=== PATIENT | male | born 1990 | race Caucasian/White ===

== ENCOUNTER 2017-04-03 19:17 | Inpatient (IN) | payer OTHER, SELFPAY ==
[~2017-04-03] VITALS: Ht 177.8 cm; Wt 75.6 kg
[2017-04-03 20:05] LABS: ASPARTATE AMINO TRANSFERASE 26 U/L (15-37); BLOOD UREA NITROGEN 20 mg/dL (7-18)
[2017-04-03 20:12] LABS: HEMATOCRIT 47.6 % (39.2-51.8); HEMOGLOBIN 16.5 g/dL (13.7-18.0); WHITE BLOOD COUNT 11.2 x10^3/uL (3.4-10)
[2017-04-03] MEDS ORDERED: OMNIPAQUE 350 MG/ML, 100ML BOTTLE ONE (20:41)
[2017-04-03] MEDS ORDERED: SODIUM CHLORIDE FLUSH 10ML SYR IVF ONE (21:00)
[2017-04-03] MEDS ORDERED: SODIUM CHLORIDE 0.9% 1,000ML IVBOLUS ONE (21:00)
[2017-04-03] MEDS ORDERED: PIPERACILLIN/TAZO/PMX 4.5GM 100 ML IV ONE (21:12)
[2017-04-03] MEDS ORDERED: HYDROcodone/APAP 5/325 TABLET PO PRN (21:30)
[2017-04-03] MEDS: FAMOTIDINE 20 MG/2 ML IVPush SCH (21:30)
[2017-04-03] MEDS ORDERED: ONDANSETRON ODT 4 MG PO PRN (21:30)
[2017-04-03] MEDS ORDERED: ACETAMINOPHEN 325 MG TABLET PO PRN (21:30)
[2017-04-03] MEDS ORDERED: LACTATED RINGERS 1,000 ML IV SCH (21:30)
[2017-04-03 23:18] VITALS: BP 147/82
[2017-04-04 02:59] VITALS: BP 130/75
[2017-04-04] MEDS: PIPERACILLIN/TAZO/PMX 3.375GM 50 ML IV SCH ×2 (03:09→09:15)
[2017-04-04] MEDS ORDERED: EPINEPHRINE 1 MG/ML, 1ML ONE (06:45)
[2017-04-04] MEDS ORDERED: BUPIVACAINE/PF 0.5% ONE (06:45)
[2017-04-04] MEDS ORDERED: LIDOCAINE-MPF 2% ,5ML ONE (06:55)
[2017-04-04] MEDS ORDERED: SUCCINYLCHOLINE 20 MG/ML, 10ML ONE (06:55)
[2017-04-04] MEDS ORDERED: ROCURONIUM 10 MG/ML ONE (06:55)
[2017-04-04] MEDS ORDERED: PROPOFOL 10 MG/ML, 20ML ONE (06:55)
[2017-04-04] MEDS ORDERED: BUPIVACAINE/PF-EPI 0.5% 1:200K IM ONE (07:10)
[2017-04-04] MEDS ORDERED: MIDAZOLAM 1 MG/ML, 2ML ONE (07:12)
[2017-04-04] MEDS ORDERED: FENTANYL PF 100 MCG/2ML ONE (07:12)
[2017-04-04] MEDS ORDERED: ONDANSETRON 2MG/ML, 2ML ONE (07:32)
[2017-04-04] MEDS ORDERED: CEFAZOLIN 1,000 MG ONE (07:32)
[2017-04-04] MEDS ORDERED: DEXAMETHASONE 4 MG/ML, 1ML ONE (07:32)
[2017-04-04] MEDS ORDERED: GLYCOPYRROLATE 0.4 MG/2 ML, 2ML ONE (08:06)
[2017-04-04] MEDS ORDERED: NEOSTIGMINE 1 MG/ML, 10ML ONE (08:06)
[2017-04-04] MEDS ORDERED: KETOROLAC 30 MG/1 ML ONE (08:27)
[2017-04-04] MEDS ORDERED: HYDROmorphone 1 MG/ML, 1ML IV PRN (08:30)
[2017-04-04] MEDS ORDERED: ACETAMINOPHEN 325 MG TABLET PO PRN (08:30)
[2017-04-04] MEDS ORDERED: DIAZEPAM 5 MG/ML, 2ML IVPush PRN (08:30)
[2017-04-04] MEDS ORDERED: PROMETHAZINE 25 MG/ML, 1ML IV PRN (08:30)
[2017-04-04] MEDS ORDERED: FENTANYL PF 100 MCG/2ML IV PRN (08:30)
[2017-04-04] MEDS ORDERED: OXYcodone 5 MG/5 ML ORAL.SOL UDC PO PRN (08:30)
[2017-04-04] MEDS ORDERED: MEPERIDINE/PF 25MG/0.5ML IVPush PRN (08:30)
[2017-04-04] MEDS ORDERED: MEPERIDINE/PF 25MG/0.5ML ONE (08:34)
[2017-04-04] MEDS ORDERED: KETOROLAC 30 MG/1 ML IVPush SCH (09:00)
[2017-04-04] MEDS: FAMOTIDINE 20 MG/2 ML IVPush SCH (09:00)
[2017-04-04] MEDS ORDERED: ACETAMINOPHEN 325 MG TABLET ONE (09:27)
[2017-04-04] MEDS ORDERED: LACTATED RINGERS 1,000 ML IV SCH (11:00)
[2017-04-04] MEDS ORDERED: ONDANSETRON 2MG/ML, 2ML IVPush PRN (11:00)
[2017-04-04] MEDS ORDERED: IBUPROFEN 600 MG TABLET PO SCH (11:00)
[2017-04-04] MEDS ORDERED: MORPHINE SULFATE 4 MG/ML, 1ML IVPush PRN (11:00)
[2017-04-04] MEDS: OXYcodone/APAP 5/325MG TABLET PO PRN ×2 (11:18→14:44)
[2017-04-04 12:21] VITALS: BP 132/83
[2017-04-04 13:32] VITALS: BP 131/76
[2017-04-04] MEDS ORDERED: OXYC-302 PO (14:44)
== END 2017-04-04 15:16 | disposition home or self-care (01) | DRG 340 ==
LOC: ED 20:02 → EDIP 21:07 → 4NOR 22:41 → DCLOUNGE 04-04 15:05
PROVIDERS: ADMIT Surgery; ATTEND Surgery
PROC: 0DTJ4ZZ Resection of Appendix, Percutaneous Endoscopic Approach (ICD-10-PCS; principal; 2017-04-04 07:30)
DX: K35.3 Acute appendicitis with localized peritonitis (principal)
CPT/HCPCS: 36415; 74177; 80053; 81003; 83690; 85025; 88304; 96365; 96366; J0171; J0690; J1100; J1885; J2175; J2250; J2405; J2543; J2704; J2710; J3010; J3490; Q9967; J0330; J7030; J7120